=== PATIENT | male | born 1995 | race Caucasian/White ===

== ENCOUNTER 2017-06-19 15:54 | Inpatient (IN) | payer BC ==
[2017-06-19] MEDS ORDERED: SODIUM CHLORIDE 0.9% 1,000 ML IV STA ×2 (16:26)
[2017-06-19] MEDS ORDERED: HYDROmorphone 1 MG/ML 1 ML SYRINGE IVP STA (16:26)
[2017-06-19] MEDS ORDERED: RX INFO: IV CONTRAST WAS GIVEN 1 EACH MISC MISCELLANE PRN (16:26)
[2017-06-19] MEDS ORDERED: ONDANSETRON 4 MG/2 ML VIAL IVP STA (16:26)
[2017-06-19] MEDS ORDERED: ACETAMINOPHEN IV (For NPO) 1,000 MG in EMPTY BAG 1 BAG IVPB STA (16:30)
--- NOTE | 2017-06-19 16:36 | ED ---
General Adult HPI - General Chief complaint: Abdominal Pain Stated complaint: Abd Pain Time Seen by Provider: 06/19/17 16:21 Source: patient, RN notes reviewed Mode of arrival: ambulatory Limitations: no limitations - History of Present Illness Initial comments: Patient's a 21-year-old male who presents emergency room today with a chief complaint of lower abdominal pain over the last 2 days. He does admit that he thought he might be constipated laxative and was able have a bowel movement but has had no relief the symptoms. Patient does admit that he's had increased pain has been constant now on the lower abdomen at times becoming sharp. Patient denies any other complaints or symptoms. Patient does admit to some nausea and vomiting. States he has similar symptoms. Denies any history of any surgeries in the abdomen. Patient denies any recent fever, chills, shortness of breath, chest pain, back pain, numbness or tingling, dysuria or hematuria, constipation or diarrhea, headaches or visual changes, or any other complaints. - Related Data Home Medications Medication Instructions Recorded Confirmed PARoxetine HCL [Paxil] 40 mg PO DAILY 06/19/17 06/19/17 Allergies Allergy/AdvReac Type Severity Reaction Status Date / Time ragweed pollen Allergy Dyspnea Verified 06/19/17 16:30 Review of Systems ROS Statement: Those systems with pertinent positive or pertinent negative responses have been documented in the HPI. ROS Other: All systems not noted in ROS Statement are negative. Past Medical History Past Medical History: No Reported History History of Any Multi-Drug Resistant Organisms: None Reported Past Surgical History: No Surgical Hx Reported Past Psychological History: Anxiety, Depression Smoking Status: Former smoker Past Alcohol Use History: Occasional Past Drug Use History: None Reported General Exam - General Exam Comments Initial Comments: General: The patient is awake and alert, in no distress, and does not appear acutely ill. Eye: Pupils are equal, round and reactive to light, extra-ocular movements are intact. No nystagmus. There is normal conjunctiva bilaterally. No signs of icterus. Ears, nose, mouth and throat: There are moist mucous membranes and no oral lesions. Neck: The neck is supple, there is no tenderness or JVD. Cardiovascular: There is a regular rate and rhythm. No murmur, rub or gallop is appreciated. Respiratory: Lungs are clear to auscultation, respirations are non-labored, breath sounds are equal. No wheezes, stridor, rales, or rhonchi. Gastrointestinal: Normal appearance of the abdomen. Normal Bowel sounds. Abdomen soft on palpation or patient does have tenderness diffusely throughout the abdomen but greatest in the lower quadrants both on the middle and right lower side. No rebound tenderness. No guarding. No CVA tenderness. Musculoskeletal: Normal ROM, no tenderness. Strength 5/5. Sensation intact. Pulses equal bilaterally 2+. Neurological: A&O x 3. CN II-XII intact, There are no obvious motor or sensory deficits. Coordination appears grossly intact. Speech is normal. Skin: Skin is warm and dry and no rashes or lesions are noted. Psychiatric: Cooperative, appropriate mood & affect, normal judgment. Limitations: no limitations Course Vital Signs 06/19/17 06/19/17 16:01 17:35 Temperature 100.7 F H 100.7 F H Pulse Rate 109 H 93 Respiratory 18 20 Rate Blood Pressure 131/73 129/67 O2 Sat by Pulse 97 95 Oximetry Medical Decision Making - Medical Decision Making Patient reexamined no signs of distress. Is feeling better after medications given here in the emergency room. His CT does reveal evidence of appendicitis was some localized free air. Patient does have a 26,000 white count. Started on Zosyn here in the emergency room will be admitted to surgeon Dr Ward covering for Dr. Hernández - Lab Data Result diagrams: 06/19/17 16:35 06/19/17 16:35 Lab Results 06/19/17 06/19/17 06/19/17 Range/Units 16:35 16:35 16:35 WBC 26.6 H* (3.8-10.6) k/uL RBC 5.07 (4.30-5.90) m/uL Hgb 15.1 (13.0-17.5) gm/dL Hct 44.0 (39.0-53.0) % MCV 86.8 (80.0-100.0) fL MCH 29.9 (25.0-35.0) pg MCHC 34.4 (31.0-37.0) g/dL RDW 13.4 (11.5-15.5) % Plt Count 260 (150-450) k/uL Neutrophils % 89 % Lymphocytes % 3 % Monocytes % 6 % Eosinophils % 1 % Basophils % 1 % Neutrophils # 23.5 H (1.3-7.7) k/uL Lymphocytes # 0.9 L (1.0-4.8) k/uL Monocytes # 1.5 H (0-1.0) k/uL Eosinophils # 0.2 (0-0.7) k/uL Basophils # 0.1 (0-0.2) k/uL Sodium 134 L (137-145) mmol/L Potassium 4.2 (3.5-5.1) mmol/L Chloride 95 L (98-107) mmol/L Carbon Dioxide 28 (22-30) mmol/L Anion Gap 11 mmol/L BUN 13 (9-20) mg/dL Creatinine 0.90 (0.66-1.25) mg/dL Est GFR (MDRD) Af Amer >60 (>60 ml/min/1.73 sqM) Est GFR (MDRD) Non-Af >60 (>60 ml/min/1.73 sqM) Glucose 119 H (74-99) mg/dL Plasma Lactic Acid Yusuf 1.0 (0.7-2.0) mmol/L Calcium 9.7 (8.4-10.2) mg/dL Total Bilirubin 2.5 H (0.2-1.3) mg/dL AST 26 (17-59) U/L ALT 36 (21-72) U/L Alkaline Phosphatase 68 (38-126) U/L Total Protein 7.1 (6.3-8.2) g/dL Albumin 3.9 (3.5-5.0) g/dL Amylase 37 (30-110) U/L Lipase 50 (23-300) U/L Urine Color Urine Appearance (Clear) Urine pH (5.0-8.0) Ur Specific [place] (1.001-1.035) Urine Protein (Negative) Urine Glucose (UA) (Negative) Urine Ketones (Negative) Urine Blood (Negative) Urine Nitrite (Negative) Urine Bilirubin (Negative) Urine Urobilinogen (<2.0) mg/dL Ur Leukocyte Esterase (Negative) Urine RBC (0-5) /hpf Ur Squamous Epith Cells (0-4) /hpf Urine Mucus (None) /hpf 06/19/17 Range/Units 17:55 WBC (3.8-10.6) k/uL RBC (4.30-5.90) m/uL Hgb (13.0-17.5) gm/dL Hct (39.0-53.0) % MCV (80.0-100.0) fL MCH (25.0-35.0) pg MCHC (31.0-37.0) g/dL RDW (11.5-15.5) % Plt Count (150-450) k/uL Neutrophils % % Lymphocytes % % Monocytes % % Eosinophils % % Basophils % % Neutrophils # (1.3-7.7) k/uL Lymphocytes # (1.0-4.8) k/uL Monocytes # (0-1.0) k/uL Eosinophils # (0-0.7) k/uL Basophils # (0-0.2) k/uL Sodium (137-145) mmol/L Potassium (3.5-5.1) mmol/L Chloride (98-107) mmol/L Carbon Dioxide (22-30) mmol/L Anion Gap mmol/L BUN (9-20) mg/dL Creatinine (0.66-1.25) mg/dL Est GFR (MDRD) Af Amer (>60 ml/min/1.73 sqM) Est GFR (MDRD) Non-Af (>60 ml/min/1.73 sqM) Glucose (74-99) mg/dL Plasma Lactic Acid Yusuf (0.7-2.0) mmol/L Calcium (8.4-10.2) mg/dL Total Bilirubin (0.2-1.3) mg/dL AST (17-59) U/L ALT (21-72) U/L Alkaline Phosphatase (38-126) U/L Total Protein (6.3-8.2) g/dL Albumin (3.5-5.0) g/dL Amylase (30-110) U/L Lipase (23-300) U/L Urine Color Dark Brown Urine Appearance Clear (Clear) Urine pH 7.5 (5.0-8.0) Ur Specific [place] >1.050 H (1.001-1.035) Urine Protein 1+ H (Negative) Urine Glucose (UA) Negative (Negative) Urine Ketones Negative (Negative) Urine Blood Negative (Negative) Urine Nitrite Positive (Negative) Urine Bilirubin 2+ H (Negative) Urine Urobilinogen 4.0 (<2.0) mg/dL Ur Leukocyte Esterase Negative (Negative) Urine RBC 2 (0-5) /hpf Ur Squamous Epith Cells 1 (0-4) /hpf Urine Mucus Rare H (None) /hpf Disposition Clinical Impression: Acute appendicitis Disposition: ADMITTED IP TO THIS HOSP Condition: Stable Referrals: Michael Frost MD [Primary Care Provider] - 1-2 days Time of Disposition: 18:43
[2017-06-19 17:01] LABS: ALT 36 U/L (21-72); AST 26 U/L (17-59); Alkaline Phosphatase 68 U/L (38-126); Amylase 37 U/L (30-110); Anion Gap 11 mmol/L; Blood Urea Nitrogen 13 mg/dL (9-20); Calcium 9.7 mg/dL (8.4-10.2); Carbon Dioxide 28 mmol/L (22-30); Chloride 95 mmol/L (98-107); Glucose 119 mg/dL (74-99); Non-African American GFR(MDRD) >60 (>60 ml/min/1.73 sqM); Potassium 4.2 mmol/L (3.5-5.1); Sodium 134 mmol/L (137-145); Total Bilirubin 2.5 mg/dL (0.2-1.3); Total Protein 7.1 g/dL (6.3-8.2)
[2017-06-19 17:02] LABS: Basophils # (A) 0.1 k/uL (0-0.2); Basophils % (A) 1 %; CH 30.6; CHCM 35.4; Eosinophils # (A) 0.2 k/uL (0-0.7); Eosinophils % (A) 1 %; HDW 2.55; HGB 15.1 gm/dL (13.0-17.5); Luc # (Auto) 0.32; Luc % (Auto) 1; Lymphocytes # (A) 0.9 k/uL (1.0-4.8); Lymphocytes % (A) 3 %; MCH 29.9 pg (25.0-35.0); MCHC 34.4 g/dL (31.0-37.0); MCV 86.8 fL (80.0-100.0); Mean Platelet Volume 7.8; Monocytes # (A) 1.5 k/uL (0-1.0); Monocytes % (A) 6 %; Neutrophils # (A) 23.5 k/uL (1.3-7.7); Neutrophils % (A) 89 %; RBC 5.07 m/uL (4.30-5.90); RDW 13.4 % (11.5-15.5); WBC (Perox) 26.18
[2017-06-19 17:05] LABS: WBC 26.6 k/uL (3.8-10.6)
[2017-06-19 18:10] LABS: Appearance,Urine Clear (Clear); Bilirubin,Urine 2+ (Negative); Glucose,Urine (UA) Negative (Negative); Ketones,Urine Negative (Negative); Leukocyte Esterase,Urine Negative (Negative); Mucus,Urine Rare /hpf; Nitrite,Urine Positive (Negative); PH, Urine 7.5 (5.0-8.0); Particle Count 1123; Protein,Urine 1+ (Negative); RBC,Urine 2 /hpf (0-5); Squamous Epithelial Cell,Urine 1 /hpf (0-4); UA Billing (MACRO vs. MICRO) MICRO
[2017-06-19 18:21] LABS: Specific Gravity,Urine >1.050 (1.001-1.035)
--- NOTE | 2017-06-19 18:32 | CT ---
EXAMINATION TYPE: CT abdomen pelvis w con DATE OF EXAM: 06/19/2017 COMPARISON: 09/09/2013 HISTORY: Patient complains of generalized pelvic pain. CT DLP: 1763 mGycm Automated exposure control for dose reduction was used. TECHNIQUE: Helical acquisition of images was performed from the lung bases through the pelvis. CONTRAST: Performed without Oral Contrast and with IV Contrast, patient injected with 100 mL of Omnipaque 300. FINDINGS: Lung bases are clear of consolidation. There is no pleural effusion. Heart size is normal. Liver spleen pancreas gallbladder appear normal. Bile ducts are not dilated. There is no adrenal mass. Kidneys show satisfactory contrast opacification. There is no hydronephrosi s. There is no retroperitoneal adenopathy. There is fat stranding in the abdomen on the right side in the right lower quadrant. There is a 1 cm calcification. There appears to be a markedly thickened ap pendix with fluid and appendicolith. There is irregular air collection that is suggestive of perforat ed appendix. There are some distended fluid-filled small bowel loops that measure up to 3 cm consistent with mild ileus. Bladder distends smoothly. There is no evidence of a pelvic mass. The bony structures are intact. IMPRESSION: EXTENSIVE INFLAMMATORY CHANGES IN THE RIGHT LOWER QUADRANT WITH FAT STRANDING AND PROBABLE APPENDICOL ITH WITH LOCALIZED FREE AIR AND RUPTURED APPENDICITIS. THIS APPEARS NEW COMPARED TO OLD CT SCAN. APPE NDIX APPEARS THICKENED UP TO 1.8 CM.
[2017-06-19] MEDS ORDERED: PIPERACILLIN-TAZOBACTAM 3.375 GM in DEXTROSE/WATER 1 50ML.BAG IVPB STA (18:39)
[2017-06-19] MEDS ORDERED: NALOXONE 0.4 MG/ML 1 ML VIAL IV PRN (18:44)
--- NOTE | 2017-06-19 19:12 | P.HPIHPCON ---
History of Present Illness H&P Date: 06/19/17 Chief Complaint: lower abdominal pain the patient is a 21-year-old white male with the liver today history of pain developed in the lower abdomen towards the right side and suprapubic area that progressively worsened. Associated with some nausea and vomiting initially. He presented to the emergency room today. CAT scan revealed evidence of acute appendicitis with localized. An inflammatory process consistent with probably a localized a perforated appendicitis. No fever or chills. Did take a laxative because he tolerated the constipated the 2 days ago. No urinary symptoms. Past history positive for anxiety depression. Takes Paxil. Nosurgeries. Social history essentially the negative. Rarely smokes. Drinks alcohol socially. 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 ALLERGIES NO KNOWN DRUG ALLERGIES. ALLERGIC to ragweed pollen. Family history noncontributory. Systems review as above. No cardiac or respiratory problems. On examination the patient is well-built well-nourished a little overweight with a BMI of 30.3 kg per metered squared. Temperature is 100.7. Hydration borderline head and neck otherwise normal. Heart regular rhythm no murmurs. Lungs are clear. Abdomen quite the tender across the lower abdomen just to the right of the suprapubic area with some guarding. No definite rebound. No mass or organomegaly or hernias noted. Extremities normal. HEATING [employer]IC intact. WBCs 26,600. Bilirubin is elevated the but the transaminases are normal. Impression acute appendicitis. The localized rupture and free air. Recommendation. Patient was started on IV fluids antibiotics. Recommend a laparoscopic appendectomy possible open. Was advised of the increased go risk for bladder complication particular of prior infection abscess bleeding surrounding injury and the potential for need for open surgery. He understood and agree to proceed. Consent for Procedure: I have explained the operation/procedure to the patient, including the risks, benefits, side effects, alternative therapies (including not receiving the proposed treatment or service), the likelihood of the patient achieving his/her goals, and potential recuperation problems for the procedure/sedation/analgesia , as well as any blood products, if indicated. I also explained to the patient the risks, benefits and side effects of the alternatives, as well as the risks related to not receiving the proposed procedure, care, treatment, or services. Past Medical History Past Medical History: No Reported History History of Any Multi-Drug Resistant Organisms: None Reported Past Surgical History: No Surgical Hx Reported Past Psychological History: Anxiety, Depression Smoking Status: Former smoker Past Alcohol Use History: Occasional Past Drug Use History: None Reported Medications and Allergies Home Medications Medication Instructions Recorded Confirmed Type PARoxetine HCL [Paxil] 40 mg PO DAILY 06/19/17 06/19/17 History Allergies Allergy/AdvReac Type Severity Reaction Status Date / Time ragweed pollen Allergy Dyspnea Verified 06/19/17 16:30 Surgical - Exam Vital Signs Temp Pulse Resp BP Pulse Ox 100.7 F H 109 H 18 131/73 97 06/19/17 16:01 06/19/17 16:01 06/19/17 16:01 06/19/17 16:01 06/19/17 16:01 Results - Labs 06/19/17 16:35 06/19/17 16:35 Abnormal Lab Results - Last 24 Hours (Table) 06/19/17 06/19/17 06/19/17 Range/Units 16:35 16:35 17:55 WBC 26.6 H* (3.8-10.6) k/uL Neutrophils # 23.5 H (1.3-7.7) k/uL Lymphocytes # 0.9 L (1.0-4.8) k/uL Monocytes # 1.5 H (0-1.0) k/uL Sodium 134 L (137-145) mmol/L Chloride 95 L (98-107) mmol/L Glucose 119 H (74-99) mg/dL Total Bilirubin 2.5 H (0.2-1.3) mg/dL Ur Specific [place] >1.050 H (1.001-1.035) Urine Protein 1+ H (Negative) Urine Bilirubin 2+ H (Negative) Urine Mucus Rare H (None) /hpf Diabetes panel 06/19/17 Range/Units 16:35 Sodium 134 L (137-145) mmol/L Potassium 4.2 (3.5-5.1) mmol/L Chloride 95 L (98-107) mmol/L Carbon Dioxide 28 (22-30) mmol/L BUN 13 (9-20) mg/dL Creatinine 0.90 (0.66-1.25) mg/dL Glucose 119 H (74-99) mg/dL Calcium 9.7 (8.4-10.2) mg/dL AST 26 (17-59) U/L ALT 36 (21-72) U/L Alkaline Phosphatase 68 (38-126) U/L Total Protein 7.1 (6.3-8.2) g/dL Albumin 3.9 (3.5-5.0) g/dL Calcium panel 06/19/17 Range/Units 16:35 Calcium 9.7 (8.4-10.2) mg/dL Albumin 3.9 (3.5-5.0) g/dL Pituitary panel 06/19/17 Range/Units 16:35 Sodium 134 L (137-145) mmol/L Potassium 4.2 (3.5-5.1) mmol/L Chloride 95 L (98-107) mmol/L Carbon Dioxide 28 (22-30) mmol/L BUN 13 (9-20) mg/dL Creatinine 0.90 (0.66-1.25) mg/dL Glucose 119 H (74-99) mg/dL Calcium 9.7 (8.4-10.2) mg/dL Adrenal panel 06/19/17 Range/Units 16:35 Sodium 134 L (137-145) mmol/L Potassium 4.2 (3.5-5.1) mmol/L Chloride 95 L (98-107) mmol/L Carbon Dioxide 28 (22-30) mmol/L BUN 13 (9-20) mg/dL Creatinine 0.90 (0.66-1.25) mg/dL Glucose 119 H (74-99) mg/dL Calcium 9.7 (8.4-10.2) mg/dL Total Bilirubin 2.5 H (0.2-1.3) mg/dL AST 26 (17-59) U/L ALT 36 (21-72) U/L Alkaline Phosphatase 68 (38-126) U/L Total Protein 7.1 (6.3-8.2) g/dL Albumin 3.9 (3.5-5.0) g/dL
[2017-06-19] MEDS ORDERED: SODIUM CHLORIDE 0.9% 1,000 ML IV ONE (19:17)
[2017-06-19] MEDS ORDERED: ONDANSETRON 4 MG/2 ML VIAL ONE (19:39)
[2017-06-19] MEDS ORDERED: NEOSTIGMINE 1 MG/ML 10 ML VIAL ONE (19:39)
[2017-06-19] MEDS ORDERED: LIDOCAINE 1% INJ 10MG/ML (20 ML MDV) ONE (19:39)
[2017-06-19] MEDS ORDERED: PROPOFOL 10 MG/ML 20 ML VIAL IV ONE (19:39)
[2017-06-19] MEDS ORDERED: fentaNYL (PF) 50 MCG/ML 2 ML AMP ONE (19:39)
[2017-06-19] MEDS ORDERED: MIDAZOLAM 2 MG/2 ML VIAL ONE (19:39)
[2017-06-19] MEDS ORDERED: GLYCOPYRROLATE 0.2 MG/ML 2 ML VIAL ONE (19:39)
[2017-06-19] MEDS ORDERED: VECURONIUM 10 MG VIAL IV ONE (19:39)
[2017-06-19] MEDS ORDERED: SUCCINYLCHOLINE CHLORIDE 100 MG/5 ML SYR IV ONE (19:39)
[2017-06-19] MEDS ORDERED: BUPIVACAIN-EPI 0.5%-1:200,000 30 ML VIAL SQ ONE ×2 (20:15)
--- NOTE | 2017-06-19 21:16 | P.OP ---
Date of Procedure: 06/19/17 Preoperative Diagnosis: acute appendicitis with the rupture and pneumoperitoneum. Postoperative Diagnosis: acute ruptured appendicitis with the pneumoperitoneum and peritonitis Procedure(s) Performed: laparoscopic appendectomy Anesthesia: ANNA Surgeon: Husam Ward Estimated Blood Loss (ml): 20 Pathology: other (appendix) Condition: stable Disposition: PACU Indications for Procedure: the patient is a 21-year-old white male who little more than a 2 day history history of lower abdominal pain more towards the right side of the abdomen with progressive worsening with nausea vomiting leukocytosis and CT evidence of pneumoperitoneum with air around the appendix and inflammatory process consistent with an acute ruptured appendicitis. Laparoscopic appendectomy possible open was recommended and informed consent was obtained as discussed in my history and physical. Operative Findings: acute ruptured suppurative appendicitis with the pneumoperitoneum and peritonitis Description of Procedure: after induction of general endotracheal anesthesia the abdominal wall was prepped with Betadine and draped. A Veress needle was inserted through a small incision made towards the left upper quadrant with the fascia and skin and subcutaneous tissues being retracted with a satisfactory saline drop test on the local anesthesia Marcaine 0.5% with epinephrine. The peritoneal cavity were then inflated with carbon dioxide to pressure approximately 15 mmHg the needle was replaced with a 5 mm trocar and the laparoscope inserted. A 10 mm trocar was placed infraumbilically under direct vision as was a 5 mm trocar in the left lower quadrant. The first seropurulent material in the peritoneal cavity mostly in the right side that it towards the pelvis. Tenderness exudate quite adherent to the right colon terminal ileum mesentery and to the anterior and right lateral abdominal wall. A careful dissection revealed eventually the appendix that was very adherent to the small bowel and to the lateral abdominal wall. This was carefully dissected and freed up and followed all the way up to the base of the cecum. A window was created in the mesoappendix at the base of the cecum with appendix and divided with the Endo SAUL stapler. Mesoappendix was then divided close to the appendix with the vascular Endo SAUL stapler with 2 passes. There was some bleeding from the mesenteric stump which was controlled with clips and the electrocautery. The neck were then removed in an Endo Catch bag. It had a perforation in about the midportion leaking of fluid mostly in the right gutter area. The peritoneal cavity was passed to the right gutter pelvis and right upper quadrant were thoroughly irrigated and return was clear. Hemostasis was good. The fascial incision was then closed using the Oh Santos apparatus and the 0 Vicryl. The subcutaneous tissues were irrigated. The skin incisions were closed with interrupted 4-0 Monocryl subcuticular sutures and Steri-Strips. Dressings were applied. All counts were correct. The patient was transferred to the recovery room in stable condition.
[2017-06-19] MEDS: HYDROmorphone 1 MG/ML 1 ML SYRINGE IVP ONE ×4 (21:30→21:44)
[2017-06-19] MEDS: traMADol 50 MG TAB PO SCH (22:10)
[2017-06-19] MEDS ORDERED: ACETAMINOPHEN TAB 325 MG TAB PO PRN (23:00)
[2017-06-19 23:35] VITALS: BMI 30.3
[2017-06-19] MEDS: HYDROmorphone 1 MG/ML 1 ML SYRINGE IVP PRN (23:36)
[2017-06-20] MEDS: PIPERACILLIN-TAZOBACTAM 3.375 GM in DEXTROSE/WATER 1 50ML.BAG IVPB SCH ×3 (00:03→18:06)
[2017-06-20] MEDS: HYDROmorphone 1 MG/ML 1 ML SYRINGE IVP PRN ×3 (03:03→09:57)
[2017-06-20] MEDS: ONDANSETRON 4 MG/2 ML VIAL IVP PRN ×2 (05:23→18:05)
[2017-06-20 07:06] LABS: CH 31.2; CHCM 34.3; HDW 2.81; HGB 15.7 gm/dL (13.0-17.5); Immature Gran Flag Slight; MCH 30.5 pg (25.0-35.0); MCHC 33.4 g/dL (31.0-37.0); MCV 91.4 fL (80.0-100.0); Mean Platelet Volume 7.1; RBC 5.14 m/uL (4.30-5.90); RDW 12.2 % (11.5-15.5); WBC 19.2 k/uL (3.8-10.6); WBC (Perox) 18.35
[2017-06-20 07:21] LABS: ALT 29 U/L (21-72); AST 15 U/L (17-59); Alkaline Phosphatase 60 U/L (38-126); Anion Gap 9 mmol/L; Blood Urea Nitrogen 13 mg/dL (9-20); Calcium 9.1 mg/dL (8.4-10.2); Carbon Dioxide 29 mmol/L (22-30); Chloride 100 mmol/L (98-107); Glucose 100 mg/dL (74-99); Non-African American GFR(MDRD) >60 (>60 ml/min/1.73 sqM); Potassium 4.4 mmol/L (3.5-5.1); Sodium 138 mmol/L (137-145); Total Bilirubin 3.7 mg/dL (0.2-1.3)
[2017-06-20 08:41] LABS: Add Differential Manual Differential
[2017-06-20 08:44] LABS: Band Neutrophils % 12 %; Manual Review Performed; Metamyelocytes % 2 %; Nucleated Red Blood Cells 0 /100 WBC (0-0); Total Cells Counted 200; Toxic Granulation Present
[2017-06-20] MEDS: traMADol 50 MG TAB PO SCH ×3 (10:31→19:12)
[2017-06-20] MEDS: HEPARIN SODIUM,PORCINE 5,000 UNIT/ML 1 ML VIAL SQ SCH ×2 (10:32→21:10)
[2017-06-20] MEDS: PARoxetine 10 MG TAB PO SCH (10:32)
[2017-06-20] MEDS: FAMOTIDINE 20 MG/2 ML VIAL IV SCH ×2 (10:32→21:10)
[2017-06-20] MEDS: LACTATED RINGERS 1,000 ML IV SCH (11:21)
--- NOTE | 2017-06-20 13:56 | P.PN ---
Progress Note - Text Progress Note Date: 06/20/17 The patient is stable. No fever. Vitals are stable. He is in no acute distress. His abdomen is soft with usual postoperative tenderness. Trocar sites are clean. No guarding or rebound. Impression. Stable postoperative course status post a laparoscopic appendectomy for acute the suppurative ruptured appendicitis with peritonitis. At high risk for complication particular abscess. Recommendation. Continue IV fluids, antibiotics and gradually increase diet and close monitoring.
[2017-06-20] MEDS: metroNIDAZOLE 500 MG TAB PO SCH ×2 (19:13→21:10)
[2017-06-21] MEDS: PIPERACILLIN-TAZOBACTAM 3.375 GM in DEXTROSE/WATER 1 50ML.BAG IVPB SCH ×4 (00:01→23:23)
[2017-06-21] MEDS: traMADol 50 MG TAB PO SCH ×5 (03:30→22:02)
[2017-06-21] MEDS: HYDROmorphone 1 MG/ML 1 ML SYRINGE IVP PRN ×2 (05:10→19:24)
[2017-06-21 07:29] LABS: Basophils % (A) 0 %; CH 30.6; Eosinophils # (A) 0.1 k/uL (0-0.7); Eosinophils % (A) 1 %; HCT 39.6 % (39.0-53.0); HDW 2.62; Luc # (Auto) 0.18; Luc % (Auto) 1; Lymphocytes # (A) 0.6 k/uL (1.0-4.8); Lymphocytes % (A) 4 %; MCH 30.7 pg (25.0-35.0); MCHC 32.9 g/dL (31.0-37.0); MCV 93.2 fL (80.0-100.0); Mean Platelet Volume 7.9; Monocytes # (A) 0.8 k/uL (0-1.0); Monocytes % (A) 5 %; Neutrophils # (A) 14.9 k/uL (1.3-7.7); Neutrophils % (A) 90 %; RBC 4.25 m/uL (4.30-5.90); RDW 13.6 % (11.5-15.5); WBC 16.5 k/uL (3.8-10.6)
[2017-06-21] MEDS: LACTATED RINGERS 1,000 ML IV SCH ×4 (07:39→23:25)
[2017-06-21 07:41] LABS: ALT 27 U/L (21-72); AST 16 U/L (17-59); Alkaline Phosphatase 56 U/L (38-126); Anion Gap 8 mmol/L; Blood Urea Nitrogen 15 mg/dL (9-20); Calcium 8.7 mg/dL (8.4-10.2); Carbon Dioxide 30 mmol/L (22-30); Chloride 96 mmol/L (98-107); Glucose 93 mg/dL (74-99); Non-African American GFR(MDRD) >60 (>60 ml/min/1.73 sqM); Potassium 4.2 mmol/L (3.5-5.1); Sodium 134 mmol/L (137-145); Total Bilirubin 2.3 mg/dL (0.2-1.3); Total Protein 5.2 g/dL (6.3-8.2)
[2017-06-21] MEDS: metroNIDAZOLE 500 MG TAB PO SCH ×3 (08:20→22:02)
[2017-06-21] MEDS: HEPARIN SODIUM,PORCINE 5,000 UNIT/ML 1 ML VIAL SQ SCH ×2 (08:21→22:03)
[2017-06-21] MEDS: FAMOTIDINE 20 MG/2 ML VIAL IV SCH (08:21)
[2017-06-21] MEDS: PARoxetine 10 MG TAB PO SCH (08:21)
--- NOTE | 2017-06-21 10:38 | CONS ---
CONSULTATION DATE OF SERVICE: 06/21/17 REQUESTING PHYSICIAN: Dr. Ward. REASON FOR CONSULTATION: Abnormal LFTs. HISTORY OF PRESENT ILLNESS: The patient is a 21 -year-old white male, admitted to hospital with severe acute onset of right lower quadrant abdominal pain and subsequently came into the emergency room, had a CT scan of the abdomen that showed a ruptured appendicitis. He underwent laparoscopic appendectomy by Dr. Ward 2 days ago and presently doing well. He was noted to have mild elevation of total bilirubin, which peaked at 3.5 g/dL. Hence, we are consulted in regards to this issue. Serum transaminases are within normal limits. The patient denies any history of chronic liver disease. Denies any alcohol use. No family history of liver disease. He was told by Dr. Frost six months that on of his liver enzymes were abnormal but does not recall if any workup was done at that time. During this hospitalization, he did have a CT of the abdomen and pelvis done that showed normal-appearing liver with no gallstones or biliary ductal dilation. PAST MEDICAL HISTORY: Significant for depression. MEDICATIONS: Prior to admission Paxil. ALLERGIES: No known drug allergies. SOCIAL HISTORY: No smoking. No alcohol use. FAMILY HISTORY: Unremarkable. REVIEW OF SYSTEMS: Cardiopulmonary: No chest pain, shortness of breath. Genitourinary: No dysuria or hematuria. Musculoskeletal: Unremarkable. Skin: Unremarkable. Endocrine: Unremarkable. Psychiatric: Unremarkable. ENT/Vision: Unremarkable. Constitutional: No recent weight loss. No fevers, chills or night sweats. PHYSICAL EXAMINATION: Blood pressure 138/77, pulse 96, temperature 98.1, HEENT examination unremarkable. Conjunctivae pink. Sclerae anicteric. Oral cavity no lesions. Neck: No jugular venous distention or lymph node enlargement. Chest was clear to auscultation. HEART: Regular rate and rhythm. ABDOMEN: Soft. Recent scar from laparoscopy appendectomy noted. Slightly distended. Extremities no pedal edema. Skin no rashes. NEUROLOGIC: Alert and oriented times three. No focal deficits. LAB DATA: At the time of admission from the hospital, WBC 26.6, hemoglobin normal. Platelets normal. Bilirubin of 2.5 with AST and ALT and alk phos normal. Yesterday bilirubin went up to 3.7 and today it is down to 2.3. AST and ALT are still within normal limits. Bilirubin was not fractionated. IMPRESSION: This is a patient who was admitted to hospital with acute appendicitis, with periappendiceal abscess status post laparoscopic appendectomy 2 days ago, he was noted to have asymptomatic elevation of total bilirubin at 2.5 g/dL, which peaked at 3.7 yesterday and today it is down to 2.3. Serum transaminase within normal limits. No fractionation available but this biochemical picture is very consistent with Gilbert's syndrome and I doubt at this time, we are dealing with any chronic liver disease. RECOMMENDATIONS: I will fraction in the total bilirubin and if we are dealing with unconjugated hyperbilirubinemia, this is a presence of Gilbert syndrome and does not need to have any further investigations done at this condition will not lead to any chronic liver disease. I assured the patient about the benign nature of the disease, but however I will fractionate the bilirubin at this point and further recommendations to follow. Thank you for this consultation. LUIS ALFREDO / ABEN: [id number] /
--- NOTE | 2017-06-21 10:42 | P.PN ---
Progress Note - Text Progress Note Date: 06/21/17 The patient is doing much better. She is he is afebrile. Vitals are stable. Tolerated his by mouth fluids this morning. He was ambulatory. On examination he is afebrile vitals are stable abdomen is soft with the less tenderness. Trocar sites are fine. WBCs improved. The bilirubin is down to 2.3. Impression improving status post laparoscopic appendectomy for acute ruptured the appendicitis with peritonitis. The isolated hyperbilirubinemia. Patient states he was told of in the past that the he had the elevation one of his liver enzymes and this may be related to his bilirubin. recommendation we'll advance his diet. Hopefully discharge in the next day or so.
[2017-06-21 12:31] LABS: Total Bilirubin 2.2 mg/dL (0.2-1.3)
[2017-06-22] MEDS: HYDROmorphone 1 MG/ML 1 ML SYRINGE IVP PRN ×4 (02:26→20:33)
[2017-06-22] MEDS: PARoxetine 10 MG TAB PO SCH (08:17)
[2017-06-22] MEDS: metroNIDAZOLE 500 MG TAB PO SCH ×3 (08:17→20:33)
[2017-06-22] MEDS: traMADol 50 MG TAB PO SCH ×4 (08:17→22:54)
[2017-06-22] MEDS: HEPARIN SODIUM,PORCINE 5,000 UNIT/ML 1 ML VIAL SQ SCH ×2 (08:18→20:33)
[2017-06-22] MEDS: PIPERACILLIN-TAZOBACTAM 3.375 GM in DEXTROSE/WATER 1 50ML.BAG IVPB SCH ×3 (08:18→22:55)
[2017-06-22] MEDS: MAG HYDROX/AL HYDROX/SIMETH 30 ML CUP PO PRN ×3 (10:06→20:40)
--- NOTE | 2017-06-22 10:08 | P.PN ---
Progress Note - Text Progress Note Date: 06/22/17 The patient is stable. Continues to improve the. No fever. Tolerated a soft diet today. Less pain. Does complain a lot of the bloating and gas. However passing flatus and did have a good bowel movement. On examination he is afebrile. Vitals are stable. Abdomen is fairly soft with minimal tenderness. Trocar sites are clean without infection. Progressive improvement status post laparoscopic appendectomy for acute ruptured appendicitis with peritonitis. Recommend the IV antibiotics for another day. Should be able to be discharged tomorrow.
[2017-06-22] MEDS: LACTATED RINGERS 1,000 ML IV SCH (13:25)
[2017-06-23 01:26] VITALS: PULSE 108; RESP 16
[2017-06-23] MEDS: LACTATED RINGERS 1,000 ML IV SCH ×2 (01:41→12:18)
[2017-06-23] MEDS: HYDROmorphone 1 MG/ML 1 ML SYRINGE IVP PRN (02:42)
[2017-06-23] MEDS: MAG HYDROX/AL HYDROX/SIMETH 30 ML CUP PO PRN ×3 (02:43→10:33)
[2017-06-23] MEDS: HEPARIN SODIUM,PORCINE 5,000 UNIT/ML 1 ML VIAL SQ SCH (08:22)
[2017-06-23] MEDS: PARoxetine 10 MG TAB PO SCH (08:22)
[2017-06-23] MEDS: metroNIDAZOLE 500 MG TAB PO SCH (08:22)
[2017-06-23] MEDS: PIPERACILLIN-TAZOBACTAM 3.375 GM in DEXTROSE/WATER 1 50ML.BAG IVPB SCH (08:23)
[2017-06-23] MEDS: traMADol 50 MG TAB PO SCH ×2 (08:29→12:58)
[2017-06-23 11:55] VITALS: BP 141/87; TEMP 98.4
--- NOTE | 2017-06-23 13:20 | P.PN ---
Progress Note - Text Progress Note Date: 06/23/17 The patient is doing much better. Tolerating a regular diet. Had a good bowel movement today. The minimal discomfort. On examination he is afebrile. Vitals are stable. He he looks well. Abdomen is soft with the minimal tenderness. Impression much improved status post laparoscopic appendectomy for acute ruptured appendicitis with peritonitis. Recommendation can be discharged from surgical standpoint. Return appointment to the office in 2 weeks. Prescription for Augmentin and now. Tramadol. No heavy lifting or straining for 2 weeks. Encouraged to ambulate. May shower.
--- NOTE | 2017-06-23 13:58 | P.DS ---
Providers Date of admission: 06/19/17 18:46 Expected date of discharge: 06/23/17 Attending physician: Husam Ward Primary care physician: Michael Frost [facility] Course: 21-year-old male presented to the emergency room with a 2 day duration lower abdominal pain more on the right with progressive nausea vomiting. CAT scan obtained of the abdomen pelvis showed air around the appendix inflammatory process consistent with acute ruptured appendicitis. On June 19 the patient underwent a laparoscopic appendectomy for an acute ruptured appendicitis with pneumoperitoneum and peritonitis. Postop patient was started on IV antibiotics and on the day of discharge was up ambulatory pain medication effective for pain control was felt to be appropriate to be discharged home Impression discharge diagnosis Present on admission 2 duration right lower quadrant pain with nausea vomiting leukocytosis suspect due to acute appendicitis CAT scan of the abdomen showed evidence of pneumoperitoneum with air around the appendix inflammatory process consistent with acute ruptured appendicitis Status post June 19 up as copy appendectomy for acute ruptured appendicitis with peritonitis and pneumoperitoneum The above impression and plan of care have been discussed and directed by signing physician. Temi Michele nurse practitioner acting as scribe for signing physician. Patient Condition at Discharge: Stable Plan - Discharge Summary Discharge Rx Participant: Yes New Discharge Prescriptions: New Amoxic-Pot Clav 875-125Mg [Augmentin 875-125] 1 tab PO Q12HR #20 tablet traMADol HCL [Ultram] 50 mg PO Q4HR PRN #20 tab PRN Reason: Mild Breakthrough Pain Continue PARoxetine HCL [Paxil] 40 mg PO DAILY Discharge Medication List PARoxetine HCL [Paxil] 40 mg PO DAILY 06/19/17 [History] Amoxic-Pot Clav 875-125Mg [Augmentin 875-125] 1 tab PO Q12HR #20 tablet [Rx] traMADol HCL [Ultram] 50 mg PO Q4HR PRN #20 tab 06/23/17 [Rx] Follow up Appointment(s)/Referral(s): Michael Frost MD [Primary Care Provider] - 1-2 days Husam aWrd MD [STAFF PHYSICIAN] - 2 Weeks Activity/Diet/Wound Care/Special Instructions: No heavy lifting or straining for 2 weeks Encourage ambulation May shower no tub bath No lifting over 4 pounds Report any redness at surgical site to Dr. Ward Discharge Disposition: HOME SELF-CARE
== END 2017-06-23 16:27 | disposition home or self-care (01) | DRG 340 ==
LOC: EC 15:54 → 3SUR 18:46
PROVIDERS: ADMIT Surgery; ATTEND Surgery
PROC: 0DTJ4ZZ Resection of Appendix, Percutaneous Endoscopic Approach (ICD-10-PCS; principal; 2017-06-19 19:15)
DX: K35.3 Acute appendicitis with localized peritonitis (principal); F32.9 Major depressive disorder, single episode, unspecified; Z79.899 Other long term (current) drug therapy; F41.9 Anxiety disorder, unspecified; Z87.891 Personal history of nicotine dependence; E80.4 Gilbert syndrome
CPT/HCPCS: 36415; 74177; 80053; 81001; 82150; 82248; 83605; 83690; 85025; 87040; 87070; 87075; 87077; 87186; 87205; 88304; 96361; 96365; 96367; 96375; 99285

== ENCOUNTER 2018-02-21 20:19 | Emergency (ER) | payer BC, OTHER ==
[2018-02-21 20:53] VITALS: RESP 18
--- NOTE | 2018-02-21 21:54 | ED ---
General Adult HPI - General Chief complaint: Wound/Laceration Stated complaint: thumb lac Time Seen by Provider: 02/21/18 21:07 Source: patient Mode of arrival: ambulatory Limitations: no limitations - History of Present Illness Initial comments: This is a 22-year-old male with no past medical history who presents today for chief complaint of I cut my left thumb. Patient states that around 7:30 PM he was at his home in his shed when he went to reach for piece of sheet metal. The sheet metal fell down and cut the distal lateral side of his left thumb. Patient stated he began to rinse the wound with water. Apply pressure with a paper towel and then drove himself to the emergency department. Patient admits to right thumb pain. Denies decreased range of motion, muscle weakness, numbness, tingling, loss of sensation of the left thumb. Patient denies any recent fever, chills, shortness of breath, chest pain, back pain, abdominal pain , nausea or vomiting, numbness or tingling, dysuria or hematuria, constipation or diarrhea, headaches or visual changes, or any other complaints. Patient tetanus up-to-date he states he last received it 3 years ago for previous history laceration repair. - Related Data Home Medications Medication Instructions Recorded Confirmed No Known Home Medications 02/21/18 02/21/18 Allergies Allergy/AdvReac Type Severity Reaction Status Date / Time ragweed pollen Allergy Dyspnea Verified 02/21/18 20:54 Review of Systems ROS Statement: Those systems with pertinent positive or pertinent negative responses have been documented in the HPI. ROS Other: All systems not noted in ROS Statement are negative. Constitutional: Denies: fever, chills ENT: Denies: ear pain, throat pain Respiratory: Denies: cough, dyspnea Cardiovascular: Denies: chest pain, palpitations Endocrine: Denies: fatigue Gastrointestinal: Denies: abdominal pain, nausea, vomiting, diarrhea, constipation Genitourinary: Denies: urgency, dysuria, frequency, hematuria Musculoskeletal: Denies: back pain Skin: Reports: as per HPI. Denies: rash Past Medical History Past Medical History: Asthma History of Any Multi-Drug Resistant Organisms: None Reported Past Surgical History: Appendectomy Past Anesthesia/Blood Transfusion Reactions: No Reported Reaction Past Psychological History: Anxiety, Depression Smoking Status: Former smoker Past Alcohol Use History: Rare Past Drug Use History: Marijuana - Past Family History Mother Family Medical History: Musculoskeletal Disorder Father Family Medical History: CVA/TIA General Exam - General Exam Comments Initial Comments: General: The patient is awake and alert, in no distress, and does not appear acutely ill. Eye: Pupils are equal, round and reactive to light, extra-ocular movements are intact. No nystagmus. There is normal conjunctiva bilaterally. No signs of icterus. Ears, nose, mouth and throat: There are moist mucous membranes and no oral lesions. Neck: The neck is supple, there is no tenderness or JVD. Cardiovascular: There is a regular rate and rhythm. No murmur, rub or gallop is appreciated. Respiratory: Lungs are clear to auscultation, respirations are non-labored, breath sounds are equal. No wheezes, stridor, rales, or rhonchi. Gastrointestinal: [Soft, non-distended, non-tender abdomen without masses or organomegaly noted. There is no rebound or guarding present. No CVA tenderness. Bowel sounds are unremarkable.] Musculoskeletal: Normal ROM, no tenderness. Strength 5/5. Sensation intact. Pulses equal bilaterally 2+. Neurological: A&O x 3. CN II-XII intact, There are no obvious motor or sensory deficits. Coordination appears grossly intact. Speech is normal. Skin: Skin is warm and dry and no rashes or lesions are noted. There is a irregularly shaped laceration about 3cm in length along the distal lateral aspect of the left thumb near the nail with skin flap, no other lacerations- no underlying structures revealed or evidence of FB. Limitations: no limitations Course Vital Signs 02/21/18 20:51 Temperature 99.0 F Pulse Rate 68 Respiratory 18 Rate Blood Pressure 128/81 O2 Sat by Pulse 99 Oximetry Procedures - Laceration Laceration #1 Time Out Performed: Yes Indication: laceration Site: other (left thumb) Size (cm): 3 Description: flap, irregular Depth: simple, single layer Sedation/Analgesia: none Anesthetic Used: lidocaine 1% Amount (mls): 8 Pre-repair: wound explored, irrigated extensively (1 liter), deep structures intact Type of Sutures: nylon Size of Sutures: 5-0 Number of Sutures: 7 Technique: simple, interrupted Patient Tolerated Procedure: well, no complications Medical Decision Making - Medical Decision Making This is a 22-year-old male with no past medical history or ALLERGIES who presents today for chief complaint of thumb laceration. Pt had large piece of sheet metal fall onto his left thumb at 7:30pm today. Wound was explored and extensively irrigated. No FB or damage to underlying structures. Laceration repair was performed using 5. 0 nylon, 7 sutures were used to approximate the skin flap to the wound edge. Bacitracin and bandage were applied. He tolerated the procedure well. He states was discussed with Dr. Haines. He was instructed to return for suture removal in 10-14 days. Pt was instrcuted to return for any signs of infections or worsening symptoms. D/c in stable condition. Disposition Clinical Impression: Laceration of left thumb Disposition: HOME SELF-CARE Condition: Good Instructions: Care For Your Stitches (ED), Laceration (ED) Additional Instructions: Please follow-up for suture removal in 10-14 days. Please return to emergency room if the symptoms increase or worsen or for any other concerns. Is patient prescribed a controlled substance at d/c from ED?: No Referrals: Michael Frost MD [Primary Care Provider] - 1-2 days Time of Disposition: 21:54
[2018-02-21 22:06] VITALS: BP 124/80; PULSE 88; TEMP 98.7
== END 2018-02-21 22:06 | disposition home or self-care (01) ==
LOC: EC 20:19
DX: S61.012A Laceration without foreign body of left thumb without damage to nail, initial encounter (principal); Z91.048 Other nonmedicinal substance allergy status; Z87.891 Personal history of nicotine dependence; W20.8XXA Other cause of strike by thrown, projected or falling object, initial encounter; W26.8XXA Contact with other sharp object(s), not elsewhere classified, initial encounter; Y92.009 Unspecified place in unspecified non-institutional (private) residence as the place of occurrence of the external cause
CPT/HCPCS: 12002; 99282

== ENCOUNTER 2018-09-07 12:00 | Emergency (ER) | payer BC ==
[2018-09-07] MEDS ORDERED: ONDANSETRON 4 MG/2 ML VIAL IVP STA (12:45)
[2018-09-07] MEDS ORDERED: SODIUM CHLORIDE 0.9% 1,000 ML IV STA (12:45)
[2018-09-07] MEDS ORDERED: ACETAMINOPHEN IV (For NPO) 1,000 MG in EMPTY BAG 1 BAG IVPB STA (12:45)
--- NOTE | 2018-09-07 12:48 | ED ---
General Adult HPI - General Chief complaint: Abdominal Pain Stated complaint: Abd.pain Time Seen by Provider: 09/07/18 12:38 Source: patient, RN notes reviewed Mode of arrival: ambulatory Limitations: no limitations - History of Present Illness Initial comments: Patient a 23-year-old male presented to the emergency room today with a chief complaint of abdominal pain that began 2 days ago. Patient describes a sharp pain located lower abdomen. Patient does admit that he's had some diarrhea. Does admit that he's felt nauseated. Was concerned that he could have a UTI [id number] medications. He denies any dysuria. Patient denies any other complaints. Patient denies any recent fever, chills, shortness of breath, chest pain, back pain, numbness or tingling, dysuria or hematuria, constipation, headaches or visual changes, or any other complaints. - Related Data Previous Rx's Medication Instructions Recorded Doxycycline [Vibramycin] 100 mg PO BID #20 cap 09/07/18 Ondansetron Odt [Zofran ODT] 4 mg PO Q8HR PRN #20 tab 09/07/18 Allergies Allergy/AdvReac Type Severity Reaction Status Date / Time ragweed pollen Allergy Dyspnea Verified 09/07/18 13:40 Review of Systems ROS Statement: Those systems with pertinent positive or pertinent negative responses have been documented in the HPI. ROS Other: All systems not noted in ROS Statement are negative. Past Medical History Past Medical History: Asthma History of Any Multi-Drug Resistant Organisms: None Reported Past Surgical History: Appendectomy Past Anesthesia/Blood Transfusion Reactions: No Reported Reaction Past Psychological History: Anxiety, Depression Smoking Status: Current some day smoker Past Alcohol Use History: Rare Past Drug Use History: Marijuana - Past Family History Mother Family Medical History: Musculoskeletal Disorder Father Family Medical History: CVA/TIA General Exam - General Exam Comments Initial Comments: General: The patient is awake and alert, in no distress, and does not appear acutely ill. Eye: There is normal conjunctiva bilaterally. No signs of icterus. Ears, nose, mouth and throat: There are moist mucous membranes and no oral lesions. Neck: The neck is supple, there is no tenderness or JVD. Cardiovascular: There is a regular rate and rhythm. No murmur, rub or gallop is appreciated. Respiratory: Lungs are clear to auscultation, respirations are non-labored, breath sounds are equal. No wheezes, stridor, rales, or rhonchi. Gastrointestinal: Abdomen soft on palpation. Does have tenderness both right and left lower quadrant. No rebound, guarding or CVA tenderness. Musculoskeletal: Normal ROM, no tenderness. Neurological: A&O x 3. CN II-XII intact, There are no obvious motor or sensory deficits. Coordination appears grossly intact. Speech is normal. Skin: Skin is warm and dry and no rashes or lesions are noted. Psychiatric: Cooperative, appropriate mood & affect, normal judgment. Limitations: no limitations Course Vital Signs 09/07/18 12:08 Temperature 98.7 F Pulse Rate 110 H Respiratory 18 Rate Blood Pressure 118/79 O2 Sat by Pulse 97 Oximetry Medical Decision Making - Medical Decision Making Patient reexamined at this time shows no signs of distress. Is resting comfortably. Abdomen soft on palpation. Patient's labs reviewed to show a 19, 000 white count. Patient's urinalysis was reviewed positive for RBCs and positive nitrate. Was discussed with patient about any concern for STD which she has declined. He states he is not concerned for STDs. Patient CT of the abdomen and pelvis is reviewed and shows thickening of the distal ileum. Crohn' s versus infectious enteritis. There is also a soft tissue mass within the small bowel mesentery which may reflect adenopathy. This was discussed in detail with the patient. He is advised close follow-up with his family physician and also will be given referral for GI. Patient will be started on antibiotics cover for UTI along with Zofran for his nausea. Advised to increase his fluids. Advised to return to emergency room if any symptoms increase worsen or concerns. - Lab Data Result diagrams: 09/07/18 12:55 09/07/18 12:55 Lab Results 09/07/18 09/07/18 09/07/18 Range/Units 12:55 12:55 12:55 WBC 19.2 H (3.8-10.6) k/uL RBC 5.05 (4.30-5.90) m/uL Hgb 15.8 (13.0-17.5) gm/dL Hct 44.7 (39.0-53.0) % MCV 88.6 (80.0-100.0) fL MCH 31.4 (25.0-35.0) pg MCHC 35.4 (31.0-37.0) g/dL RDW 12.1 (11.5-15.5) % Plt Count 232 (150-450) k/uL Neutrophils % 92 % Lymphocytes % 3 % Monocytes % 3 % Eosinophils % 1 % Basophils % 0 % Neutrophils # 17.7 H (1.3-7.7) k/uL Lymphocytes # 0.7 L (1.0-4.8) k/uL Monocytes # 0.6 (0-1.0) k/uL Eosinophils # 0.1 (0-0.7) k/uL Basophils # 0.0 (0-0.2) k/uL Sodium 138 (137-145) mmol/L Potassium 4.2 (3.5-5.1) mmol/L Chloride 100 (98-107) mmol/L Carbon Dioxide 28 (22-30) mmol/L Anion Gap 10 mmol/L BUN 18 (9-20) mg/dL Creatinine 0.91 (0.66-1.25) mg/dL Est GFR (CKD-EPI)AfAm >90 (>60 ml/min/1.73 sqM) Est GFR (CKD-EPI)NonAf >90 (>60 ml/min/1.73 sqM) Glucose 104 H (74-99) mg/dL Calcium 9.3 (8.4-10.2) mg/dL Total Bilirubin 3.8 H (0.2-1.3) mg/dL AST 20 (17-59) U/L ALT 26 (21-72) U/L Alkaline Phosphatase 45 (38-126) U/L Total Protein 7.5 (6.3-8.2) g/dL Albumin 4.4 (3.5-5.0) g/dL Amylase 39 (30-110) U/L Lipase 60 (23-300) U/L Urine Color Dark Brown Urine Appearance Clear (Clear) Urine pH 5.5 (5.0-8.0) Ur Specific [place] 1.023 (1.001-1.035) Urine Protein 1+ H (Negative) Urine Glucose (UA) Negative (Negative) Urine Ketones Negative (Negative) Urine Blood Moderate H (Negative) Urine Nitrite Positive (Negative) Urine Bilirubin 2+ H (Negative) Urine Urobilinogen 6.0 (<2.0) mg/dL Ur Leukocyte Esterase Negative (Negative) Urine RBC 55 H (0-5) /hpf Urine WBC 5 (0-5) /hpf Urine Mucus Few H (None) /hpf Disposition Clinical Impression: UTI (urinary tract infection), Enteritis, Adenopathy Disposition: HOME SELF-CARE Condition: Stable Instructions (If sedation given, give patient instructions): Urinary Tract Infection in Men (ED) Additional Instructions: Please follow-up with the family doctor a GI doctor as discussed for further evaluation. Please use antibiotic as prescribed. Return to emergency room if symptoms increase worsen or for any other concerns. Prescriptions: Doxycycline [Vibramycin] 100 mg PO BID #20 cap Ondansetron Odt [Zofran ODT] 4 mg PO Q8HR PRN #20 tab PRN Reason: Nausea Is patient prescribed a controlled substance at d/c from ED?: No Referrals: Michael Frost MD [Primary Care Provider] - 1-2 days Lavelle Lockhart MD [STAFF PHYSICIAN] - 1-2 days Time of Disposition: 15:36
--- NOTE | 2018-09-07 13:16 | XR ---
EXAMINATION TYPE: XR KUB DATE OF EXAM: 09/07/2018 COMPARISON: NONE HISTORY: Pain TECHNIQUE: Single supine KUB image of the abdomen is obtained FINDINGS: Small bowel demonstrates no evidence for dilatation or air fluid levels. Gas and fecal material is seen in non-distended colon. No convincing evidence for pneumoperitoneum. No unusual calcifications. The lung bases are clear. The osseous structures are intact. IMPRESSION: 1. Overall nonobstructive bowel gas pattern.
[2018-09-07 13:25] LABS: Basophils % (A) 0 %; Eosinophils # (A) 0.1 k/uL (0-0.7); Eosinophils % (A) 1 %; HCT 44.7 % (39.0-53.0); HGB 15.8 gm/dL (13.0-17.5); Lymphocytes # (A) 0.7 k/uL (1.0-4.8); Lymphocytes % (A) 3 %; MCH 31.4 pg (25.0-35.0); MCHC 35.4 g/dL (31.0-37.0); MCV 88.6 fL (80.0-100.0); Mean Platelet Volume 6.9; Monocytes # (A) 0.6 k/uL (0-1.0); Monocytes % (A) 3 %; Neutrophils # (A) 17.7 k/uL (1.3-7.7); Neutrophils % (A) 92 %; Platelet Count 232 k/uL (150-450); RBC 5.05 m/uL (4.30-5.90); RDW 12.1 % (11.5-15.5); WBC 19.2 k/uL (3.8-10.6)
[2018-09-07 13:27] LABS: Appearance,Urine Clear (Clear); Bilirubin,Urine 2+ (Negative); Blood,Urine Moderate (Negative); Color,Urine Dark Brown; Glucose,Urine (UA) Negative (Negative); Ketones,Urine Negative (Negative); Leukocyte Esterase,Urine Negative (Negative); Mucus,Urine Few /hpf; Nitrite,Urine Positive (Negative); PH, Urine 5.5 (5.0-8.0); Protein,Urine 1+ (Negative); RBC,Urine 55 /hpf (0-5); Specific Gravity,Urine 1.023 (1.001-1.035)
[2018-09-07 13:40] LABS: ALT 26 U/L (21-72); AST 20 U/L (17-59); Albumin 4.4 g/dL (3.5-5.0); Alkaline Phosphatase 45 U/L (38-126); Amylase 39 U/L (30-110); Anion Gap 10 mmol/L; Blood Urea Nitrogen 18 mg/dL (9-20); Calcium 9.3 mg/dL (8.4-10.2); Carbon Dioxide 28 mmol/L (22-30); Chloride 100 mmol/L (98-107); Glucose 104 mg/dL (74-99); Lipase 60 U/L (23-300); Potassium 4.2 mmol/L (3.5-5.1); Sodium 138 mmol/L (137-145); Total Bilirubin 3.8 mg/dL (0.2-1.3); Total Protein 7.5 g/dL (6.3-8.2)
--- NOTE | 2018-09-07 15:05 | CT ---
EXAMINATION TYPE: CT abdomen pelvis w con DATE OF EXAM: 06/19/2017 COMPARISON: None HISTORY: lower abdominal pain, hematuria CT DLP: 878.1 mGycm CONTRAST: CT scan of the abdomen and pelvis is performed without Oral Contrast and with IV Contrast, patient in jected with 100 mL of Isovue 300. FINDINGS: LUNG BASES-: No visible nodule. No infiltrate. LIVER/GB: No calcified gallstones. No space occupying hepatic lesion. Biliary tree is of normal ca liber. PANCREAS: No inflammation. No distinct mass. SPLEEN: No splenic enlargement. No lesion seen. ADRENALS: No nodule. No thickening. KIDNEYS/BLADDER: No hydronephrosis. No nephrolithiasis. No distinct renal mass. Urinary bladder g rossly unremarkable. BOWEL: There are changes of prior appendectomy. Correlate with surgical history. There are thickened loops of distal ileum which may reflect enteritis nonspecific type with infectious and inflammatory p rocesses considered such as Crohn's disease. Mild surrounding inflammatory change. No evidence for ab scess or perforation. Mild small bowel distention with air-fluid levels may reflect ileus. GENITAL ORGANS: No gross abnormality. LYMPH NODES: Small bowel Mesenteric soft tissue mass measuring 3.4 x 2.6 cm may reflect adenopathy. N o additional adenopathy identified. Correlate for possible lymphoma. AORTA: No significant abnormality. OSSEOUS STRUCTURES: No significant abnormality is seen. OTHER: No significant additional abnormality is seen. IMPRESSION: 1. Thickened loops of distal ileum. Correlate for Crohn's disease versus infectious enteritis. 2. Correlate for prior appendectomy. 3. Soft tissue mass within the small bowel mesentery may reflect adenopathy. No additional adenopathy present. Lymphoma not excluded.
[2018-09-07 15:43] VITALS: BP 114/67; PULSE 71; RESP 16; TEMP 98.5
[2018-09-08 14:32] LABS: C. trachomatis,PCR Negative (Neg,Equiv); Chlamydia trachomatis Source Urine
[2018-09-08 14:35] LABS: N. gonorrhoeae,PCR Negative (Neg,Equiv); Neisseria Source Urine
== END 2018-09-07 15:50 | disposition home or self-care (01) ==
LOC: EC 12:00
DX: N39.0 Urinary tract infection, site not specified (principal); K52.9 Noninfective gastroenteritis and colitis, unspecified; R59.9 Enlarged lymph nodes, unspecified; F17.200 Nicotine dependence, unspecified, uncomplicated; Z91.018 Allergy to other foods
CPT/HCPCS: 36415; 80053; 82150; 83690; 85025; 81001; 87491; 87591; 74018; 74177; 99284; 96374; 96375; 96361; J2405; J0131; Q9967

== ENCOUNTER → 2018-10-06 | Outpatient (CLI) | payer BC ==
[2018-10-06 10:55] LABS: HCT 44.3 % (39.0-53.0); HGB 14.4 gm/dL (13.0-17.5); MCH 29.7 pg (25.0-35.0); MCHC 32.5 g/dL (31.0-37.0); MCV 91.4 fL (80.0-100.0); Mean Platelet Volume 6.4; Platelet Count 242 k/uL (150-450); RBC 4.85 m/uL (4.30-5.90); RDW 12.9 % (11.5-15.5); WBC 5.9 k/uL (3.8-10.6)
[2018-10-06 13:12] LABS: Erythrocyte Sedimentation Rate 2 mm/hr (0-15)
[2018-10-06 16:45] LABS: ALT 34 U/L (10-49); AST 27 U/L (14-35); Alkaline Phosphatase 60 U/L (41-126); C Reactive Protein <0.4 mg/dL (0.0-0.8); Calcium 9.4 mg/dL (8.7-10.3); Carbon Dioxide 29.5 mmol/L (21.6-31.8); Chloride 105 mmol/L (96-109); Globulin 2.1 g/dL (1.6-3.3); Glucose 89 mg/dL (70-110); Potassium 4.8 mmol/L (3.5-5.5); Sodium 139 mmol/L (135-145); Total Bilirubin 1.3 mg/dL (0.3-1.2); Total Protein 6.5 g/dL (6.2-8.2)
== END | disposition home or self-care (01) ==
LOC: LABWHC1 09:39
DX: R93.5 Abnormal findings on diagnostic imaging of other abdominal regions, including retroperitoneum (principal)
CPT/HCPCS: 36415; 80053; 82248; 85027; 85652; 86140

== ENCOUNTER 2018-10-14 08:06 | Day surgery (SDC) | payer BC ==
[2018-10-13 09:35] VITALS: BMI 27.1
[~2018-10-14 08:06] MED LIST: LIDOCAINE 1% 20 ML VIAL (10MG/ML) FOR IV START INTRADERMA PRN
[2018-10-14 08:32] VITALS: RESP 16; TEMP 97.4
[2018-10-14] MEDS: LACTATED RINGERS 1,000 ML IV SCH ×2 (08:39→09:34)
[2018-10-14] MEDS ORDERED: PROPOFOL 10 MG/ML 20 ML VIAL IV ONE (09:38)
[2018-10-14] MEDS ORDERED: LIDOCAINE 1% INJ 10MG/ML (20 ML MDV) ONE (09:38)
--- NOTE | 2018-10-14 10:13 | P.PCN ---
Date of Procedure: 10/14/18 Procedure(s) Performed: Procedure: Colonoscopy and biopsy. Preoperative diagnosis: Abnormal terminal ileum on CT. Postoperative diagnosis: 1. Exam of the colon and terminal ileum within normal limits. 2. Biopsies obtained from the terminal ileum. Preparation: HalfLytely prep. Sedation: Was provided by anesthesia. Brief clinical history: The patient is a 23-year-old male who was evaluated in the emergency room last month because of severe abdominal pain. CT of the abdomen showed thickening of the terminal ileal loops. Radiologist raised the possibility of inflammatory bowel disease or lymphoma in addition to possible infectious etiology. The patient had an appendectomy 1 year ago. The patient completed a course of antibiotics and has been doing well but was concerned and expecting further evaluation. This evaluation is to assess for inflammatory bowel disease or other pathology. Procedure: With the patient on his left lateral decubitus position and after informed consent and adequate sedation, the perianal area was inspected and it did not show any fissures or fistulas. There were no masses felt on digital rectal examination. The Olympus CFH 19T and video colonoscope was then inserted in the rectum in the usual fashion and advanced to the cecum. I intubated the ileocecal valve and examined the terminal ileum. Terminal ileum and colon appeared healthy with no edema, erythema, friability, ulceration, exudation or spontaneous bleeding. No polyps or tumors were seen or any obvious diverticular disease or other pathology. I retroflexed the endoscope in the rectum before the endoscope was withdrawn. The patient tolerated the procedure well. Plan: The patient was reassured. He will follow up with you as planned and I would be happy to see in the future if his symptoms recur.
[2018-10-14 10:25] VITALS: BP 104/56; PULSE 53
== END 2018-10-14 10:59 | disposition home or self-care (01) ==
LOC: ORWHC2ENDO 08:06
DX: R10.9 Unspecified abdominal pain (principal); F17.200 Nicotine dependence, unspecified, uncomplicated
CPT/HCPCS: 88305; 45380; J2001; J2704